=== PATIENT | female | born 1975 | race Caucasian/White ===

== ENCOUNTER 2019-11-11 08:40 | Outpatient (CLI) | payer BC, SELFPAY ==
--- NOTE | 2019-11-11 09:02 | MM_ITS ---
WS: [id number] BILATERAL DIGITAL SCREENING MAMMOGRAPHY WITH CAD CLINICAL INFORMATION: SCREENING HISTORY: Screening mammogram. No current complaints. COMPARISON: October 21, 2018 TECHNIQUE: Bilateral CC and MLO views. FINDINGS: The breasts are composed of heterogeneous fibroglandular density tissue, which can limit the detectio n of small underlying mass lesions. Diffuse scattered punctate calcifications both breasts unchanged in appearance. No suspicious mass, asymmetry, calcifications, or architectural distortion. No evidenc e of malignancy. MM/[id number] IMPRESSION: BI-RADS: 2-Benign FOLLOW UP: 1 Year Follow-up Recommend return to annual screening mammography.
== END 2019-11-11 08:41 | disposition home or self-care (01) ==
LOC: RADSHAW 08:43
PROVIDERS: Visit Provider Nurse Practitioner Women's Health
DX: Z12.31 Encounter for screening mammogram for malignant neoplasm of breast (principal)
CPT/HCPCS: 77067

== ENCOUNTER → 2020-04-26 15:17 | Outpatient (BNVA) | payer BC, SELFPAY | PROVIDERS: Visit Provider Nurse Practitioner Women's Health | DX: Z34.80 Encounter for supervision of other normal pregnancy, unspecified trimester (principal); Z01.419 Encounter for gynecological examination (general) (routine) without abnormal findings | CPT/HCPCS: 84315; 88175 ==

== ENCOUNTER 2020-12-12 13:54 | Outpatient (CLI) | payer BC, SELFPAY ==
--- NOTE | 2020-12-12 14:01 | MM_ITS ---
WS: [id number] BILATERAL DIGITAL SCREENING MAMMOGRAPHY WITH CAD CLINICAL INFORMATION: SCREENING HISTORY: Screening mammogram. No current complaints. COMPARISON: November 11, 2019 TECHNIQUE: Bilateral CC and MLO views. FINDINGS: The breasts are composed of heterogeneous fibroglandular density tissue, which can limit the detectio n of small underlying mass lesions. Stable diffuse benign punctate calcifications. No suspicious mass , asymmetry, calcifications, or architectural distortion. No evidence of malignancy. MM/[place] [id number] IMPRESSION: BI-RADS: 2-Benign FOLLOW UP: 1 Year Follow-up Recommend return to annual screening mammography.
== END 2020-12-12 13:55 | disposition home or self-care (01) ==
LOC: RADSHAW 13:57
PROVIDERS: Visit Provider Nurse Practitioner Women's Health
DX: Z12.31 Encounter for screening mammogram for malignant neoplasm of breast (principal)
CPT/HCPCS: 77067

== ENCOUNTER 2022-01-28 10:31 | Outpatient (CLI) | payer BC, SELFPAY ==
--- NOTE | 2022-01-28 10:38 | MM_ITS ---
WS: [id number] VIEWS: MLO and CC views both breasts. 3D digital tomosynthesis is also included in this exam. Comparison made with prior exam of 12/11/2012, 10/22/2017, 10/21/2018, 11/11/2019, 12/12/2020.. Findings: There was no sign of mass, architectural distortion or suspicious calcification in either breast. He terogeneously dense MM/[place] [id number] Impression: BI-RADS: 2-Benign FOLLOW-UP: 1 Year Follow-up This mammogram was also analyzed by the Computer Aided Detection System [employer].
== END 2022-01-28 10:32 | disposition home or self-care (01) ==
LOC: RAD 10:31
PROVIDERS: Visit Provider Nurse Practitioner Women's Health
DX: Z12.31 Encounter for screening mammogram for malignant neoplasm of breast (principal)
CPT/HCPCS: 77063; 77067

== ENCOUNTER 2022-08-07 10:17 | Day surgery (SDC) | payer BC, SELFPAY ==
[2022-08-06 12:03] VITALS: BMI 31.3
[2022-08-07 10:27] VITALS: BP 119/73; PULSE 75; RESP 18; TEMP 36.1; O2SAT 100
--- NOTE | 2022-08-07 10:34 | ANES.PREANE2 ---
Pre-Anesthetic Assessment Height/Weight: Height 1.7 m Weight 90.718 kg Temp Pulse Resp BP Pulse Ox O2 Del Method 97.0 F L 75 18 119/73 100 Room Air 08/07/22 10:27 08/07/22 10:08/07/22 10:27 08/07/22 10:27 08/07/22 10:27 08/07/22 10:27 Preop Diagnosis: Screening Operation Date: 08/07/22 11:00 Proposed Procedures p Colonoscopy 42001,Z12.11(Not Applicable) - Benedicto Beltran DO Familial anesthetic complications: None Was Beta Holland taken within 24 hours: N/A Was Clonidine taken within 24 hours: N/A Last intake: Intake Last Liquid Date 08/06/22 Last Liquid Time 21:45 Last Solid Date 08/05/22 Last Solid Time 20:00 Social No alcohol and No tobacco Exam alert, oriented x 3, clear to auscultation bilaterally and regular rate & rhythm Airway Submandibular: within normal limits Cervical ROM: within normal limits Mallampati: Class II Dentition: full History/ROS No significant history except as noted and No significant complaints Pulmonary None reported CV/HEM None reported None reported Hepatic None reported GI Gastroesophageal Reflux Disease (None this am) Metabolic None reported Musc/skel None reported Neuropsych None reported Anesthetic Plan ASA status: 1 Anesthesia: Anesthesia Evaluation, General and MAC Risk of > 500 ml blood loss (7ml/kg in children): No Medications/Allergies Home Medications Medication Instructions Recorded Confirmed Last Taken Type No Known Home Medications 03/25/19 08/07/22 Unknown History Allergies Allergy/AdvReac Type Severity Reaction Status Date / Time No Known Allergies Allergy Verified 08/07/22 10:27 [facility] Anesthesia Medical History Patient denies medical problems Denies history of: htn,dm,heart,lung,liver,kidney,thyroid,dvt Surgical History History of tonsillectomy Family History Grandmother Breast cancer maternal, diagnosed in her 60s Ovarian cancer Paternal--dx age 90's Mother Thyroid condition Unknown No problems noted. Denies family history of Colon cancer Diabetes Heart disease Hypertension Uterine cancer Stroke Social History Substance/Drug Use: never Female Reproductive History Date of last menstrual period: 07/17/22 Data Anesthesia Cardiac Studies: No Data to Display
[2022-08-07 10:39] LABS: OR HCG Qualitative Urine Negative (Negative)
[2022-08-07] MEDS: sodium chloride 0.9% 1,000 ML 30 ML IV (10:39)
--- NOTE | 2022-08-07 11:01 | W.PM.OPSUD ---
Surgery/Procedure H&P Update DATE OF PROCEDURE: August 07, 2022 DATE H&P PERFORMED: 08/06/22 H&P UPDATE INFORMATION: I have reviewed H&P completed within last 30 days, I have examined patient prior to procedure and No changes to prior documentation PREOP DIAGNOSIS: Screening PLANNED PROCEDURE: Operation Date: 08/07/22 11:00 Proposed Procedures p Colonoscopy 79429,Z12.11(Not Applicable) - Benedicto Beltran, DO
[2022-08-07 11:44] VITALS: BP 111/66; PULSE 87; RESP 16; TEMP 36.1; O2SAT 96
[2022-08-07 11:55] VITALS: BP 114/67; PULSE 89; RESP 16; O2SAT 99
--- NOTE | 2022-08-07 15:53 | ANE.PACU2 ---
Inpatient post-anesthesia follow up: Airway intact: Yes Vital signs: Temperature 97.0 F Pulse Rate 89 Respiratory Rate 16 Blood Pressure 114/67 Pulse Oximetry 99 Oxygen Delivery Me thod Room Air Oxygen Flow Rate Fraction of Inspir ed Oxygen Hydration adequate: Yes Nausea and vomiting: No Pain level: 1 Mental status: Baseline
== END 2022-08-07 12:40 | disposition home or self-care (01) ==
PROVIDERS: Anesthesiology; PCP Family Medicine; Visit Provider Surgery
PROC: 0DJD8ZZ Inspection of Lower Intestinal Tract, Via Natural or Artificial Opening Endoscopic (ICD-10-PCS; CPT 45378; principal; 2022-08-07 11:00)
DX: Z12.11 Encounter for screening for malignant neoplasm of colon (principal); K21.9 Gastro-esophageal reflux disease without esophagitis; D12.5 Benign neoplasm of sigmoid colon
CPT/HCPCS: 45381; 45385; 81025; 84703; 88305; J2704; J7030

== ENCOUNTER 2023-02-06 07:51 | Outpatient (CLI) | payer BC, SELFPAY ==
--- NOTE | 2023-02-06 07:52 | MM_ITS ---
WS: [id number] BILATERAL 3D TOMOSYNTHESIS DIGITAL SCREENING MAMMOGRAPHY WITH CAD CLINICAL INFORMATION: Z12.31 - Encounter for screening mammogram for malignant ... HISTORY: Screening mammogram. No current complaints. COMPARISON: 2021 TECHNIQUE: Bilateral CC and MLO views. FINDINGS: The breasts are composed of heterogeneous fibroglandular density tissue, which can limit the detectio n of small underlying mass lesions. No suspicious mass, asymmetry, calcifications, or architectural d istortion. No evidence of malignancy. Diffuse scattered calcifications bilaterally. A few lucent cent ered calcifications. IMPRESSION: MM/[place] [id number] BI-RADS: 2-Benign FOLLOW UP: 1 Year Follow-up Recommend return to annual screening mammography.
== END 2023-02-06 07:52 | disposition home or self-care (01) ==
LOC: RAD 07:51
PROVIDERS: PCP Family Medicine; Visit Provider Nurse Practitioner Women's Health
DX: Z12.31 Encounter for screening mammogram for malignant neoplasm of breast (principal)
CPT/HCPCS: 77063; 77067

== ENCOUNTER 2024-02-09 07:23 | Outpatient (CLI) | payer BC, SELFPAY ==
--- NOTE | 2024-02-09 07:30 | MM_ITS ---
WS: [id number] BILATERAL SCREENING DIGITAL TOMOSYNTHESIS MAMMOGRAM WITH CAD HISTORY: SCREENING COMPARISON: 01/28/2022, 02/06/2023, 12/12/2020, 10/15/2017 Bilateral CC and MLO views with tomosynthesis and synthetic mammography submitted. Computer aided det ection analyzed. Breast composition: The breasts are extremely dense, which lowers the sensitivity of mammography. No suspicious masses, microcalcifications or architectural distortion. Numerous scattered calcifications in each breast. Calcifications are smooth and round. There is an asymmetry which is stable over mult iple prior years RIGHT breast against the pectoralis muscle. MM/MM scr [place] tomosynthesis [id number] IMPRESSION: BI-RADS: 2 - Benign FOLLOW UP: 1 Year Follow-up
== END 2024-02-09 07:24 | disposition home or self-care (01) ==
LOC: RAD 07:25
PROVIDERS: PCP Family Medicine; Visit Provider Family Medicine
DX: Z12.31 Encounter for screening mammogram for malignant neoplasm of breast (principal); R92.30 Dense breasts, unspecified; R92.1 Mammographic calcification found on diagnostic imaging of breast; N64.89 Other specified disorders of breast
CPT/HCPCS: 77063; 77067